=== PATIENT | male | born 1935 | race Caucasian/White ===

== ENCOUNTER 2023-10-07 22:07 | Emergency (ER) | payer MEDICARE, MEDICAID, SELFPAY ==
[2023-10-07 22:15] VITALS: BP 129/63
[2023-10-07 22:43] LABS: Hematocrit 32.2 % (39.0-52.0); Hemoglobin 11.5 g/dL (13.0-18.0); Mean Corp Hgb Conc. 35.7 g/dL (33.0-37.0); Mean Corpuscular Volume 103.5 fL (80.0-94.0); Mean Platelet Volume 11.7 fL (7.4-10.4); Platelet Count 158 10^3/uL (130-400); Red Blood Cell Count 3.11 10^6/uL (4.70-6.10); Red Cell Dist. Width 14.7 % (11.5-14.5); White Blood Cell Count 8.5 10^3/uL (4.8-10.8)
[2023-10-07 22:53] LABS: COVID-19 Antigen Negative (Negative)
[2023-10-07 22:55] LABS: ALT (SGPT) 31 U/L (0-50); AST (SGOT) 38 U/L (17-59); Albumin 4.7 g/dl (3.5-5.0); Alkaline Phosphatase 70 U/L (38-126); Blood Urea Nitrogen 20 mg/dl (9-20); Calcium 9.2 mg/dl (8.4-10.2); Carbon Dioxide 22 mmol/L (22-30); Chloride 105 mmol/L (98-107); Glucose 117 mg/dl (70-99); Sodium 138 mmol/L (135-145); Total Bilirubin 0.9 mg/dl (0.2-1.3); Total Protein 7.9 g/dl (6.3-8.2); eGFR > 60.00
[2023-10-07 23:00] VITALS: BP 119/88; BP 128/104
[2023-10-07 23:04] LABS: Platelets Checked Yes
[2023-10-07 23:05] LABS: Macrocytosis 1+; Normal RBC Morphology No
[2023-10-07 23:06] LABS: NT-proBNP 308 pg/ml; Troponin I < 0.012 ng/ml
[2023-10-07 23:07] LABS: Total Cells Counted 100
--- NOTE | 2023-10-07 23:23 | ED.GENMED ---
History of Present Illness
General
Chief Complaint: Breathing Problem
Time Seen by Provider: 10/07/23 22:54
History of Present Illness
History of Present Illness:
88-year-old male with history of CAD status post CABG December 2022, hypertension, diabetes presenting to the emergency department for shortness of breath. Patient is visiting from [place], staying with his daughter. Notes for the past week he
has had cough and shortness of breath, has had difficulty getting up mucus. Symptoms have been ongoing for the past week. Denies fever. Reports generalized fatigue. Denies chest pain, reports of burning in his chest. Denies any lower extremity
swelling. Patient takes metformin for his diabetes and aspirin, has not been taking his hypertensive medications. Denies any known sick contacts. Denies abdominal pain or GI complaints. Denies additional acute medical complaints
Phy Exam
Physical Exam
Physical Exam:
General: Well-appearing, no clinical signs of dehydration, nontoxic and in no acute distress
HEENT: protecting airway
Neck: appears supple
CV: Normal heart rate, regular rhythm, no evidence of cyanosis
Resp: No accessory muscle use, no increased work of breathing, lungs clear to auscultation bilaterally
Abd: Soft and non-distended, no tenderness to palpation, normal bowel sounds
Extremities: No deformities, no swelling, no erythema, pulses and sensation intact
Neuro: alert, no focal neurologic deficit
: deferred
Rectal: deferred
Psych: Normal affect
Skin: Intact
Scores
Heart Failure Risk
Heart Failure Risk Score: Yes
History of Stroke or TIA: No
History of intubation for respiratory distress: No
Heart rate on ED arrival >/= 110: No
SaO2 <90% on arrival on room air: No
HR >/=110 during 3min walk test (or too ill to perform test): No
ECG has acute ischemic changes: No
Urea >/=12mmol/L (BUN 33.6mg/dL): No
Serum CO2>/=35mmol/L: No
Troponin I or T elevated to KS Level (0.4mg/dL): No
NT-proBNP >/=5,000ng/L (5,000pg/ml): No
HF Risk Score: 0
Admission Status: LOW RISK 2.8% Consider discharge to home with f/u visit to PCP/Grinding Room Inspector
Course
Orders/Labs/Results
Orders:
Orders
10/07/23 22:24
Electrocardiogram (*1) Urgent
Reason for Study: Other
Other Reason for Exam: Respiratory Distress
Cardiac Monitoring- Treatment ONCE
EKG- Treatment ONCE
IV Insert/Care/Rem.- Treatment PRN
CR Chest - 2 Views Urgent
Comment:
Reason For Exam: respiratory distress
O2 Therapy [RESP] Urgent
Titrate/Wean O2 to maintain O2 sat greater than (%): 93
Special Instructions: TO MAINTAIN CONTINUOUS O2 SATS >/= 93%
Pulse Ox/cont/shift [RESP] Urgent
Quantity: 1
Special Instructions: continuous pulse ox
10/07/23 22:31
COVID-19 Antigen Urgent
Source: Nasal Swab
Complete Blood Count/With Diff Urgent
Comprehensive Metabolic Panel Urgent
Manual Differential Urgent
NT-proBNP Urgent
Troponin I Urgent
Abnormal Lab Results
10/07/23
22:31
RBC 3.11 L 10^6/uL
(4.70-6.10)
Hgb 11.5 L g/dL
(13.0-18.0)
Hct 32.2 L %
(39.0-52.0)
MCV 103.5 H fL
(80.0-94.0)
MCH 37.0 H pg
(27.0-31.0)
RDW 14.7 H %
(11.5-14.5)
MPV 11.7 H fL
(7.4-10.4)
Glucose 117 H mg/dl
(70-99)
10/07/23 22:31
10/07/23 22:31
Vital Signs
Initial and Last Documented VS:
Initial Vital Signs
Temp Pulse Resp BP Pulse Ox
99.9 F 73 26 129/63 94
10/07/23 22:15 10/07/23 22:15 10/07/23 22:15 10/07/23 22:15 10/07/23 22:15
Last Documented Vital Signs
Temp Pulse Resp BP Pulse Ox
99.9 F 70 22 137/58 94
10/07/23 22:15 10/08/23 00:15 10/08/23 00:15 10/08/23 00:00 10/08/23 00:30
MDM/Problems Addressed
MDM/Problems Addressed:
88-year-old male with history of CAD status post CABG, hypertension, diabetes presenting to the emergency department for cough and shortness of breath for 1 week. Vital signs on arrival significant for hypertension, however patient reports
noncompliance with hypertensive medications.
On exam, patient in no acute respiratory distress. Lung exam relatively unremarkable, no focal abnormal lung sounds. Patient with active dry cough. Possible viral component. Daughter references component of congestive heart failure, however
patient is not on any diuretic medications. No lower extremity edema or signs of volume overload on exam, lower suspicion. EKG obtained, lateral T wave inversion without prior for comparison. Patient denies any associated chest pain. Given
duration of symptoms, lower suspicion for acute coronary syndrome. Given risk factors, will obtain laboratory analysis. Will also obtain chest x-ray imaging.
23:30 - Labs unremarkable, normal BNP. Troponin also undetectable.
00:10 -chest x-ray without signs of pulmonary edema. No pleural effusions. No pulmonary infiltrates. COVID-negative. No leukocytosis or concern for pneumonia. At this time suspect likely viral quality to patient's symptoms. Patient otherwise
remains stable. Feel stable for discharge with close and for follow-up with his primary care doctor and video tape transferrer. Daughter is requesting antibiotics in the event that patient develops fever or worsening cough since he is traveling to
[place]. Will prescribe, however explained that patient should not start taking it unless cough becomes more productive, develops fever. Advised compliance with his blood pressure medications. Strict return precautions communicated to patient
and daughter at bedside who verbalized understanding
*EKG
Interpreted by ED Provider?: Yes
EKG Intrepretation Date: 10/07/23
EKG Intrepretation Time: 23:29
Interpretation: normal
Comparison EKG: no comparison EKG present
Heart Rate: 73
Rate: normal
Rhythm: sinus
Wheelwright: normal axis
Interval: normal interval
QRS Pattern: normal QRS
Ischemia: T-wave inversion (laterally)
*Critical Care Note
Total Time (30-74mins, 75-104mins- exclusive of procedures): Not Applicable
ED Attending Note
-
Portions of this chart may have been created with voice recognition software.� Occasional wrong word or��sound alike� substitutions may have occurred due to the inherent limitations of voice recognition software.
Discharge Plan
Departure
Patient Disposition: Home (Routine Discharge)
Date of Disposition: 10/08/23
Time of Disposition: 00:19
Patient with high blood pressure during this ER visit?: No
Condition: Good
Discharge Problem:
Cough, Acute viral syndrome
Instructions: Upper Respiratory Infection - Adult
Prescriptions:
New
doxycycline hyclate 100 mg capsule
100 mg PO BID 7 Days Qty: 14 0RF
benzonatate 100 mg capsule
100 mg PO BID PRN (Reason: Cough) Qty: 10 0RF
Referrals:
NONE,* [Family Provider] -
Activity Restrictions/Additional Instructions:
You were seen in the emergency department for cough and shortness of breath
You were found to have a normal chest x-ray and laboratory analysis
Please follow-up closely with your primary care physician.
Return to the emergency department for any worsening of your symptoms, or any development of chest pain, difficulty breathing, abdominal pain with persistent vomiting and inability to tolerate food or liquid by mouth (concern for dehydration),
weakness, headache or confusion, fever greater than 100.4, or any additional symptoms that are concerning to you.
Thank you for choosing [facility].
Interventions
Interventions:
*Risk Screen - Suicide Last Done: 10/07/23 22:15
*General Assessment Last Done: 10/07/23 22:15
*Neglect/Abuse Screening Last Done: 10/07/23 22:15
ED- Fall Risk Assessment Last Done: 10/07/23 22:15
*ED COVID-19 Vaccine History Last Done: 10/07/23 22:15
*Nursing Disposition Last Done: 10/08/23 01:05
ED- Cardiac Assessment Last Done: 10/07/23 23:04
ED- Pulmonary Assessment Last Done: 10/07/23 23:04
Discharge Date and Time
Discharge Date/Time: 10/08/23 01:05
Print Language: YI
[2023-10-08] VITALS: BP 137/58
[2023-10-08 19:28] LABS: Absolute Neutrophils -Man Diff 4.3 10^3/uL (1.4-6.5)
[2023-10-08 19:32] LABS: Band Neutrophils 6 % (0-3); Lymphocytes 26 % (20-51); Segmented Neutrophils 45 % (42-75)
[2023-10-08 19:33] LABS: Blasts 3 % (-); Metamyelocytes 1 % (-); Monocytes 18 % (2-9); Myelocytes 1 % (-)
--- NOTE | 2023-10-09 08:55 | ED.ATTNOTE ---
ED Attending Note
ED Attending Note
ED Attending Note:
Lab informed of this that the CBC from the other night showed 3% blasts. I informed his daughter by phone, Ekaterina, . I encouraged her to follow-up with a radiology teacher and she can return here with him if he is worsening. They live in
[place] but will still be here for the short-term.
-
Portions of this chart may have been created with voice recognition software.� Occasional wrong word or��sound alike� substitutions may have occurred due to the inherent limitations of voice recognition software.
== END 2023-10-08 01:05 | disposition home or self-care (01) ==
LOC: EMR 22:07
PROVIDERS: Emergency Medicine; EMERGENCY PHYSICIAN Student in an Organized Health Care Education/Training Program
DX: B34.9 Viral infection, unspecified (principal); R05.9 Cough, unspecified; I10 Essential (primary) hypertension; E11.9 Type 2 diabetes mellitus without complications; I25.10 Atherosclerotic heart disease of native coronary artery without angina pectoris; Z91.148 Patient's other noncompliance with medication regimen for other reason; Z95.1 Presence of aortocoronary bypass graft
CPT/HCPCS: 99283; 71046; 80053; 83880; 84484; 85025; 87811; 93005

== ENCOUNTER 2024-11-21 19:14 | Inpatient (IN) | payer MEDICARE, OTHER, SELFPAY ==
[2024-11-21 13:22] VITALS: BP 152/67
--- NOTE | 2024-11-21 14:38 | ED.GENMED ---
History of Present Illness
General
Chief Complaint: Cough
Source: patient and family
Exam Limitations: none
Time Seen by Provider: 11/21/24 14:13
Nursing documentation reviewed up to this point in time: agreed with
History of Present Illness
History of Present Illness:
89-year-old male with a past medical history of hypertension, hyperlipidemia, CAD status post CABG, CHF who presents to the emergency room for evaluation of cough. Patient is visiting family from [place], here with his son today. He reports that
over the past week he has had persistent nonproductive cough. He reports mild associated shortness of breath. He has had some mild rhinorrhea. He denies any chest pain. He has not noticed any swelling in the legs. Subjective but no objective
fever. He denies any other acute complaints. He says he had similar symptoms with pneumonia in the past.
Review of Systems
Review of Systems
All Other Systems: ROS reviewed and negative except as documented in HPI and ROS
Constitutional: Reports fever and fatigue
EENT: Reports runny nose; Denies sore throat
Respiratory: Reports cough and trouble breathing
Cardiac: Denies chest pain
ABD/GI: Denies abdominal pain, vomiting or diarrhea
Musculoskeletal: Denies edema, neck pain or back pain
Neurological: Denies headache
Phy Exam
Physical Exam
Physical Exam:
General: Awake, alert, oriented x3; no acute distress
Head: Normocephalic, atraumatic
Eyes: Conjunctiva normal
Throat: Airway intact, handling secretions
Neck: Trachea midline, no JVD
Lungs: Patient has faint rales at the right lung base, frequent cough; no tachypnea or hypoxia or other signs of respiratory distress
Heart: Regular rate and rhythm, no murmurs, gallops, or rubs appreciated, well-healed sternotomy scar noted
Neuro: Grossly intact
Skin: No rash noted
Extremities: No edema in extremities, warm and well-perfused
Scores
Heart Failure Risk
Heart Failure Risk Score: Not Applicable
Heart Score for Chest Pain Patients
STEMI patient?: Not applicable
Withdrawal Assessment of Alcohol
Withdrawal Assessment Completed?: Not applicable
Course
Orders/Labs/Results
Orders:
Orders
11/21/24 13:26
CR Chest - 2 Views Urgent
Comment:
Reason For Exam: cough
11/21/24 14:39
Electrocardiogram (*1) Urgent
Reason for Study: Shortness of Breath
EKG- Treatment ONCE
11/21/24 14:48
COVID-19 Antigen Urgent
Source: Nasal Swab
Complete Blood Count/With Diff Urgent
Comprehensive Metabolic Panel Urgent
NT-proBNP Urgent
Influenza A+B Rapid Molecular Urgent
ROSY Source: Nasal Swab
Specimen Description:
11/21/24 16:18
Amoxicillin 875 mg/Clav 125 mg [Augmentin 875 mg/125 mg] 1 tablet PO NOW STA
Azithromycin [Zithromax] 500 mg PO NOW STA
Abnormal Lab Results
11/21/24
14:48
WBC 11.3 H 10^3/uL
(4.8-10.8)
RBC 2.94 L 10^6/uL
(4.70-6.10)
Hgb 10.8 L g/dL
(13.0-18.0)
Hct 32.2 L %
(39.0-52.0)
MCV 109.5 H fL
(80.0-94.0)
MCH 36.7 H pg
(27.0-31.0)
RDW 14.6 H %
(11.5-14.5)
MPV 12.0 H fL
(7.4-10.4)
Glucose 117 H mg/dl
(70-99)
11/21/24 14:48
11/21/24 14:48
Vital Signs
Initial and Last Documented VS:
Initial Vital Signs
Temp Pulse Resp BP Pulse Ox
36.9 C 69 17 152/67 95
11/21/24 13:22 11/21/24 13:22 11/21/24 13:22 11/21/24 13:22 11/21/24 13:22
Last Documented Vital Signs
Temp Pulse Resp BP Pulse Ox
36.9 C 69 18 155/74 91
11/21/24 13:22 11/21/24 16:30 11/21/24 16:30 11/21/24 16:00 11/21/24 16:15
MDM/Problems Addressed
Differential Diagnosis Includes:
Pneumonia, bronchitis, viral syndrome, CHF less likely clinically
MDM/Problems Addressed:
89-year-old male presents for evaluation of cough, shortness of breath, subjective fever over the past week. Vitals and exam as above. Plan to check labs including a CBC and a CMP, proBNP. Check viral swabs. Check chest x-ray and EKG. Reassess
after the above.
Labs reviewed: CBC shows mild leukocytosis, stable anemia. CMP no clinically significant abnormalities. COVID and flu swabs negative. Chest x-ray shows cardiomegaly in the setting of known CHF. He has ground glass opacities in lower lobes
bilaterally�overall seeking clinical picture into consideration suspect this represents pneumonia. Lower suspicion that this is pulmonary edema/CHF�although his proBNP was slightly elevated he is having acute cough with subjective fever with no
edema, no JVD or other signs of congestive heart failure. Will plan to treat with antibiotics. On clinical reassessment his respiratory and pulse ox are acceptable although most recent pulse ox low normal 91%. Spoke with patient and son at length
about treatment plan and disposition�patient feels too weak to go home this evening and is requesting to stay in the hospital until he feels a bit better. Son says he feels uncomfortable with patient's current functional status. Discussed case
with hospitalist for admission.
Chronic conditions affecting care:
CHF
*Radiology
Radiology exam reviewed: preliminary read by ED provider
*Pulse Oximetry
SaO2: 95
Oxygen Mode of Delivery: Room air
Patient hypoxic: no (95%)
*Critical Care Note
Total Time (30-74mins, 75-104mins- exclusive of procedures): Not Applicable
Data Reviewed
Review of Other/Old Records Reveals: Labs and Records
Source: patient and family
Patient Management
Discussion with other providers: Hospitalist (Discussed with hospitalist)
Escalation/DeEscalation of care consider admission/obs:
Admission indicated
ED Attending Note
-
Portions of this chart may have been created with voice recognition software.� Occasional wrong word or��sound alike� substitutions may have occurred due to the inherent limitations of voice recognition software.
Discharge Plan
Departure
Patient Disposition: Admit
Date of Disposition: 11/21/24
Time of Disposition: 16:26
Admit to doctor: Perez
Presentation/result/management discussed w/ accepting MD/DO: Hospitalist
Discharge Problem:
Pneumonia
Instructions: Pneumonia, Adult (DC)
Prescriptions:
No Action
doxycycline hyclate 100 mg capsule
100 mg PO BID 7 Days Qty: 14 0RF
benzonatate 100 mg capsule
100 mg PO BID PRN (Reason: Cough) Qty: 10 0RF
Referrals:
UNKNOWN - PT DOES,NOT KNOW [Family Provider]
Interventions
Interventions:
*Risk Screen - Suicide Last Done: 11/21/24 13:25
*General Assessment Last Done: 11/21/24 13:25
*Neglect/Abuse Screening Last Done: 11/21/24 13:25
*ED COVID-19 Vaccine History Last Done: 11/21/24 13:25
Discharge Date and Time
Print Language: GREEK
[2024-11-21 14:56] VITALS: BP 155/70
[2024-11-21 14:59] VITALS: BMI 39.6
[2024-11-21 15:00] VITALS: BP 158/69
[2024-11-21 15:17] LABS: Hematocrit 32.2 % (39.0-52.0); Hemoglobin 10.8 g/dL (13.0-18.0); Mean Corp Hgb Conc. 33.5 g/dL (33.0-37.0); Mean Corpuscular Volume 109.5 fL (80.0-94.0); Platelet Count 133 10^3/uL (130-400); Red Cell Dist. Width 14.6 % (11.5-14.5)
[2024-11-21 15:28] LABS: COVID-19 Antigen Negative (Negative)
[2024-11-21 15:31] LABS: ALT (SGPT) 17 U/L (0-50); AST (SGOT) 21 U/L (17-59); Albumin 4.2 g/dl (3.5-5.0); Alkaline Phosphatase 66 U/L (38-126); Blood Urea Nitrogen 12 mg/dl (9-20); Calcium 8.5 mg/dl (8.4-10.2); Carbon Dioxide 26 mmol/L (22-30); Chloride 105 mmol/L (98-107); Estimated Creatinine Clearance 60 ml/min; Glucose 117 mg/dl (70-99); Potassium 4.2 mmol/L (3.5-5.1); Sodium 138 mmol/L (135-145); Total Protein 7.8 g/dl (6.3-8.2); eGFR > 60.00
[2024-11-21 16:00] VITALS: BP 155/74
[2024-11-21] MEDS: AUGMENTIN 875 MG/125 MG 1 TABLET PO (16:38)
[2024-11-21] MEDS: ZITHROMAX 500 MG PO (16:38)
[2024-11-21 17:20] LABS: Absolute Neutrophils -Man Diff 5.4 10^3/uL (1.4-6.5); Anisocytosis 1+; Macrocytosis 1+; Normal RBC Morphology No; Platelets Checked Yes; Total Cells Counted 100
--- NOTE | 2024-11-21 17:28 | PHANOTE ---
med rec tech: pt and family member do not speak Angolan. Spoke to daughter on pt's phone and she will look for bottles and bring them to the hospital.
--- NOTE | 2024-11-21 17:30 | HPS.HSE ---
Family Physician
-
Family Physician: NOT KNOW UNKNOWN - PT DOES
Chief Complaint
-
Shortness of breath, PETTY, wheezing, nonproductive cough
History of Present Illness
89-year-old Latvian-speaking male whose daughter states he has had shortness of breath for the past week with dyspnea on exertion. He has had a cough however he swallows the mucus and is not able to expectorate it. He also reported chills a week
ago with temperature of only 99F. He denies chest pain, palpitations, fever, chills, headache, sore throat, abdominal pain, nausea, vomiting, diarrhea, urinary symptoms, sick contacts.
Past medical history CAD/CABG x 3 vessel December 2022 [facility], chronic CHF, LBBB, HTN, HLD, DM 2, dementia with short-term memory impairment per daughter via phone needs assistance with all ADLs goes to adult senior
care 3 times a week however only went on Friday due to shortness of breath. Chronic macrocytic anemia, class III obesity
Medical History
Past Medical History
Past Medical History: Reports Other
Additional Past Medical History:
CAD/CABG x 3 vessel December 2022 [facility]
CHF
LBBB
HTN
HLD
DM 2
chronic macrocytic anemia
Class III obesity
Past Surgical History: Reports Other
Additional Past Surgical History:
CAD/CABG x 3 vessel December 2022 [facility]
ORIF left shoulder
Social History
Tobacco: Former Smoker (Quit age 31)
Alcohol: None
Drug: None
Personal: Single
Living: With Family (Lives in same home as family but has separate area)
Employment: Retired
Family History
Family History: Not pertinent
Allergies / Home Medications
Allergies reflects when Allergies were last updated in [employer].
Home Medications with original date entered in [employer]
Allergy/Medication List:
Allergies
Allergy/AdvReac Type Severity Reaction Status Date / Time
No Known Allergies Allergy Verified 10/07/23 22:15
Home Medications
clotrimazole-betamethasone 1 %-0.05 % topical cream 1 applic topical BID 11/21/24
linaclotide 145 mcg capsule (Linzess) 145 mcg PO DAILY 11/21/24
omeprazole 20 mg capsule,delayed release 20 mg PO BID 11/21/24
Attempted to clarify patient meds with daughter via phone who does not have the list. I called [facility] in [facility] which was closed and does not have any 24-hour [place] in that state according to online site. Pharmacy staff will
attempt to obtain patient's home med list in the a.m. from [facility]
Review of Systems
-
History Source: Patient and Family (Daughter via phone who speaks Latvian son at bedside limited Kyrgyz)
A 12 point ROS was completed and negative except as noted: Yes
Constitutional: Denies Fever or Chills
EENT: Denies Runny Nose
Respiratory: Reports Cough (Nonproductive), Trouble Breathing and Other (PETTY, diffuse wheezing throughout both lung mendez)
Cardiac: Denies Chest Pain, Diaphoresis, Palpitations or Syncope
Abdomen/GI: Reports Other (Ventral hernia present with setting up soft nontender); Denies Abdominal Pain, Nausea, Vomiting, Diarrhea, Constipated, Bloody Stools or Black Stools
: Denies Dysuria, Frequency, Flank Pain, Incontinence or Difficulty Voiding
Musculoskeletal: Denies Joint Pain or Edema
Skin: Denies Itching or Rash
Neurological: Denies Dizzy or Headache
Endocrine: Reports No Symptoms
Hematologic/Lymphatic: Reports No Symptoms
Psych: Reports Calm
Physical Exam
Vital Signs
Vital Signs
Temp Pulse Resp BP Pulse Ox
98.5 F 69 18 155/74 91
11/21/24 13:22 11/21/24 16:30 11/21/24 16:30 11/21/24 16:00 11/21/24 16:15
Physical Exam
General: Conversant (But short of breath with minimal activity as in sitting up) and Morbidly Obese; No Pain, Fever or Chills
HEENT: NormoCephalic, Anicteric, Moist mucous membranes, PERRLA, [place] Conjunctivae and No Ptosis
Respiratory: Wheezes (Expiratory bilaterally throughout both lung mendez); No Rales or Rhonchi
Cardiac: S1/S2 and Regular Rhythm; No Murmur, Rub, Gallop or Peripheral Edema
Breast: Deferred by me
GI: Soft, Non Tender, Non Distended, Normal Bowel Sounds, No Hepatosplenomegaly and Other (Soft longitudinal ventral hernia with sitting up nontender)
Rectal: Deferred by Provider
Genito-urinary: Deferred by me
Musculoskeletal: No Clubbing, No Cyanosis and No Edema
Skin: Warm and Dry; No Rash or Jaundice
Neuro: Awake, Alert, Oriented (In Latvian to name, daughter, review of systems however daughter states does have history of memory impairment admits to short-term memory dementia needs assist with all ADLs goes to adult daycare 3 times a week), No
Motor Deficits, Cranial Nerves Intact and Other (Chronic OHOGAMIUT); No Slurred Speech, Facial Droop, Tremors or Sedated
Psych: Calm
Laboratory Results
-
11/21/24 14:48
11/21/24 14:48
Laboratory Results
Total Bilirubin 1.0 mg/dl (0.2-1.3) 11/21/24 14:48
AST 21 U/L (17-59) 11/21/24 14:48
ALT 17 U/L (0-50) 11/21/24 14:48
Alkaline Phosphatase 66 U/L (38-126) 11/21/24 14:48
Data Reviewed
-
Lab Data: Labs Reviewed by me
Impression/Plan
-
Impression/plan:
Admit to telemetry
#Acute hypoxic respiratory insufficiency 2/2 likely Acute on chronic CHF versus less likely bilateral lower lobe pneumonia
Patient attends adult alf 3 days a week
WBC 11.3 no shift, COVID/influenza negative
BNP 1929
91% RA, supplemental O2
I/O, daily weights
Afebrile 98.5, HR 69, 155/74
-Procalcitonin negative we will hold further antibiotics as suspect shortness of breath is due to CHF
- Check 2D echo
- Consult CBC cardiology
- IV Lasix 40 mg now on daily
CXR:
1. Moderate cardiomegaly with evidence for previous CABG s
Diagnostic possibilities are (1) mild bilateral lower lobe pneumonia,
(2) mild subsegmental atelectasis and scarring, or (3) mild alveolar pulmonary edema.
3. Mildly decreased bilateral lung volumes
EKG: NSR 64 bpm, incomplete LBBB QTc 416 MS. No change from September 2023
#History of LBBB
#CAD/CABG x 3 vessel December 2022 [facility]
#Dementia with short-term memory impairment per daughter via phone (Latvian speaking male)
needs assistance with all ADLs goes to adult alf 3 times a week however only went on Friday due to shortness of breath
- Might not always know president, day of the week, needs help with cooking bathing dressing
#HTN
BP 155/74
#HLD
Check lipid profile
#DM 2
Accu-Cheks with SSI, check HgbA1c
#GERD/IBS
Continue omeprazole, continue Linzess
#Chronic anemia�macrocytic
Hgb 10.8 appears near baseline was 11.5 09/2023
#Chronic ventral hernia
#Class III obesity�BMI 39.6
Affects all aspects of care
DVT prophylaxis
Subcu heparin
Full code per daughter via phone
[2024-11-21 19:08] LABS: Procalcitonin 0.10 ng/ml (0.0-0.25)
[2024-11-21 20:00] VITALS: BP 173/71; BMI 35.1
--- NOTE | 2024-11-21 20:15 | PTCARENOTE ---
Pt rec'd from ED alert & oriented (confirmed by daughter as pt speaks Jamaican and very little Armenian). Able to ambulate from hallway to bed w/steady gait. Pt oriented to room and plan of care reviewed w/pt via translation by daughter. Instructed on
call alexander use and use of urinal in order to measure urine. Pt verbalizes understanding.
[2024-11-21 20:25] LABS: Glucose - Point of Care 104 mg/dl (70-99)
[2024-11-21] MEDS: LASIX 40 MG IV (20:39)
--- NOTE | 2024-11-21 22:06 | W.PN.UPDATE ---
Update Note
Progress Note Update
This is an addendum to H&P written by Michell Lopez on 11/21/2024. �Patient seen and examined independently with REMEDIATION CONSULTANT.
89-year-old male past medical history of CAD status post CABG, CHF, left bundle branch block, hypertension, hyperlipidemia, diabetes, chronic macrocytic anemia, obesity, presenting with 1 week of shortness of breath with exertion, nonproductive
cough and wheezing.
Vital signs unremarkable.
Labs show leukocytosis. �Cardiac BNP of 1900. �COVID and�flu negative. Procal negative.�
Patient with dyspnea likely secondary to acute CHF exacerbation versus less likely pneumonia.� Patient given amoxicillin and azithromycin in ER.� Stop further Abx.� �40 IV Lasix. �Check echocardiogram. Cardiology consulted.�
[2024-11-21 23:00] VITALS: BP 116/48
[2024-11-22] VITALS (7 sets, daily range): BP systolic 117–156; BP diastolic 48–74; PULSE 72; O2SAT 94; BMI 35.2
[2024-11-22 07:43] LABS: Glucose - Point of Care 144 mg/dl (70-99)
--- NOTE | 2024-11-22 07:59 | CON.CAR ---
Addendum entered and electronically signed by Jerzy Arzola MD 11/22/24 09:59:
I saw and examined the patient.
The CUSTOMS PORT DIRECTOR's note was reviewed and I agree with the note.
81-year-old Turkish-speaking male history of coronary artery bypass grafting 2022 in [place], hypertension hypercholesterolemia diabetes left bundle branch block and dementia. Daughter is with him at the bedside and helps provide additional
history as well as interprets for patient. Patient said shortness of breath and cough difficulty raising sputum. No fever. No complaints of chest pain no orthopnea or lower extremity edema she helps him with his medications. Reportedly
compliant. They state he has had no hospitalizations since his coronary artery bypass grafting in 2022 and denies history of heart failure. On presentation patient shortness of breath with elevated Probalan BNP. In addition chest x-ray with mild
ground glass opacity in the lower lobes possible pneumonia or pulmonary edema. Appears patient has a component of acute CHF. LV function unknown. Will proceed as follows
- Diuresis with IV Lasix
- Monitor weights labs and renal function-
-will defer to hospitalist regarding additional optimization of pulmonary issues including treatment of wheezing possible use of inhalers and consideration for antibiotics.
-Echocardiogram
-Obtain old records
-Additional recommendations based on echo results
-
Original Note:
Consultation
Consultation Request
Date/Time Consultation Requested: 11/21/2024 22:30
Date/Time Consultation Performed: 11/22/2024 08:00
Requesting Provider: JORGE Kauffman
Performing Provider: JORGE Nicole for Dr. Arzola
Reason for Consultation: New heart failure
Medical History
-
Chief Complaint: Shortness of breath
History of Present Illness:
Cameron Guerra is an 89-year-old male with CAD s/p CABG (2022, [facility] in [place]), hypertension, hypercholesterolemia, type 2 diabetes mellitus, LBBB, and dementia presented to the emergency department the
chief complaint of shortness of breath. He endorses dyspnea on exertion and moist productive cough. He denies chest pain, palpitations, and dizziness. Per his daughter, his shortness of breath has been ongoing for 1 week. His normal schedule
includes going to [facility] 3 times a week. He requires assistance with all ADLs. He was admitted with acute heart failure exacerbation. Unfortunately, his daughter does not have a home medication list and his pharmacy is closed.
Past Medical History
Past Medical History: CAD (CABG [2022]), HTN, Hypercholesterolemia, NIDDM and Other (LBBB, dementia)
Past Surgical History: Cardiac (CABG [2022]) and Orthopedic
Social History
Tobacco: Former Smoker
Drug: None
Living: With Family
Employment: Retired
Family History
Family History: Reviewed & Not Pertinent
Allergies / Home Medications
Allergy/AdvReac Type Severity Reaction Status Date / Time
No Known Allergies Allergy Verified 10/07/23 22:15
�Medication �Instructions �Recorded �Confirmed �Type
clotrimazole-betamethasone 1 1 applic topical BID Skin Issues 11/21/24 History
%-0.05 % topical cream
linaclotide 145 mcg capsule 145 mcg PO DAILY Gastrointestinal 11/21/24 History
(Linzess) Agent
omeprazole 20 mg capsule,delayed 20 mg PO BID GERD 11/21/24 History
release
Review of Systems
-
History Source: Patient
All other systems: Negative unless noted
Constitutional: No Symptoms
EENT: No Symptoms
Respiratory: Cough and Trouble Breathing
Cardiac: No Symptoms
Abdomen/GI: No Symptoms
: No Symptoms
Musculoskeletal: No Symptoms
Skin: No Symptoms
Hematologic/Lymphatic: No Symptoms
Physical Exam
Vital Signs
Temp Pulse Resp BP Pulse Ox
100.2 F 71 22 118/48 95
11/22/24 03:00 11/22/24 03:00 11/22/24 03:00 11/22/24 03:00 11/22/24 03:00
Lab Results
Dud-H-Oxbwyhcaapb Pept 1930 pg/ml 11/21/24 14:48
Physical Exam
General: Well Developed, Well Nourished and No Apparent Distress
HEENT: Normocephalic and Anicteric
Respiratory: Wheezes
Cardiac: S1/S2 and Regular Rhythm
Breast: Deferred by me
GI: Soft, Non Tender, Non Distended and Normal Bowel Sounds
Rectal: Deferred by Provider
Musculoskeletal: No Clubbing and No Cyanosis
Skin: Warm and Dry
Neuro: Awake and Alert
Hematologic/Lymphatic: No Lymphadenopathy
Psych: Calm
Impression / Plan
-
I/P: 89M Turkish speaking with CAD s/p CABG (2022, [facility] in [place]), hypertension, hypercholesterolemia, type 2 diabetes mellitus, LBBB, and dementia presented to the emergency department the chief complaint of
shortness of breath. He was admitted with an acute heart failure exacerbation.
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
Heart failure, type unknown, NEW, acute on chronic - severe, requiring hospitalization
- CXR with GGO and proBNP 1929
- No orthopnea but expiratory wheezing
- Diuresis with furosemide 40 mg IV twice daily, this requires intensive monitoring
- Case management to pinon SGLT2
- Trend daily weight, I/O, and BMP with diuresis
- Heart failure education with daughter, patient has underlying dementia and he lives at home
- Echocardiogram today
CAD s/p CABG 2022, stable without chest pain
- Await home medication list, start ASA 81 mg daily
Hypertension
- BP stable currently, normally on amlodipine 10 mg daily
PSVT
-Brief run on telemetry, await medication list, would not start BB now with wheeze
Hypercholesterolemia, he is supposed to on atorvastatin 40 mg, per pharmacy has never filled this prescription
Type 2 diabetes mellitus, with hyperglycemia, care per primary
Former smoker, continue cessation recommended
Dementia, chronic
IVCD, chronicity unknown, likely chronic
Data Reviewed
-
Radiology: Report Reviewed by me (CXR: Moderate cardiomegaly with evidence for previous CABG surgery. Mild ground-glass opacity in the lower lobes of both lungs. )
Labs: Labs Reviewed by me
Old Records: Reviewed
[2024-11-22 08:19] LABS: Hematocrit 31.8 % (39.0-52.0); Hemoglobin 10.6 g/dL (13.0-18.0); Mean Corp Hgb Conc. 33.3 g/dL (33.0-37.0); Mean Corpuscular Volume 109.7 fL (80.0-94.0); Platelet Count 124 10^3/uL (130-400); Red Cell Dist. Width 14.6 % (11.5-14.5)
[2024-11-22 08:46] LABS: ALT (SGPT) 15 U/L (0-50); AST (SGOT) 20 U/L (17-59); Albumin 4.1 g/dl (3.5-5.0); Alkaline Phosphatase 60 U/L (38-126); Blood Urea Nitrogen 13 mg/dl (9-20); Calcium 8.5 mg/dl (8.4-10.2); Carbon Dioxide 27 mmol/L (22-30); Chloride 103 mmol/L (98-107); Estimated Creatinine Clearance 62 ml/min; Glucose 138 mg/dl (70-99); Potassium 3.9 mmol/L (3.5-5.1); Sodium 138 mmol/L (135-145); Total Protein 7.4 g/dl (6.3-8.2); eGFR > 60.00
[2024-11-22 08:58] LABS: Absolute Neutrophils -Man Diff 5.1 10^3/uL (1.4-6.5); Anisocytosis 1+; Hypochromasia 1+; Macrocytosis 1+; Normal RBC Morphology No; Platelets Checked Yes
[2024-11-22 08:59] LABS: Total Cells Counted 100
[2024-11-22] MEDS: ASPIR LOW (ENTERIC COATED) 81 MG PO (09:26)
--- NOTE | 2024-11-22 09:28 | W.PN.HOSP.TC ---
Today's Communication/Plan
-
see bold
Assessment / Plan
Assessment / Plan
HPI: 89-year-old male past medical history of CAD status post CABG, CHF, left bundle branch block, hypertension, hyperlipidemia, diabetes, chronic macrocytic anemia, obesity, presenting with 1 week of shortness of breath with exertion, nonproductive
cough and wheezing.
#Acute heart failure with preserved ejection fraction
Appreciate cardiology input, continue Lasix 40 mg IV twice daily
Trend creatinine, trend daily weights
#Probable pneumonia
Patient with a mild leukocytosis, and low-grade fever upon admission
Influenza negative, COVID-negative
Check urine Legionella and strep antigens
Continue IV Rocephin, doxycycline day 2
Add budesonide nebs twice daily, DuoNebs as needed
#Gastroesophageal reflux disease
Continue PPI twice daily once med rec is confirmed
#Essential hypertension
Monitor blood pressure
#Glucose intolerance
Hemoglobin A1c 6.4
Sliding scale insulin, carb controlled diet
#Obesity due to excess calories
Affects all aspects of care
DVT prophylaxis�subcu Lovenox
Full code
Total time spent to see the patient on the floor, examine the patient, review data and lab results, discuss treatment plan with patient, nursing staff around 35 minutes.
Physical Exam
General: Obese, no acute distress
HEENT: Normocephalic, Atraumatic, EOMI, MMM
Respiratory: Coarse breath sounds with faint wheezing
Cardiac: Normal S1/S2, Regular Rate and Rhythm
GI: Soft, Nontender, Nondistended, Normal Bowel Sounds
Extremities: No Clubbing, Cyanosis
Neuro: Nonfocal/Grossly Intact
Psych: Calm, Cooperative
Anticipated Discharge: 24 - 48 hours
Subjective/Interval History
-
Date of Service: November 22, 2024
Patient continues to cough. Denies shortness of breath. No fever, no vomiting.
Objective Data
-
Labs:
Laboratory Results
11/22/24
07:58
WBC 10.6
Hgb 10.6 L
Hct 31.8 L
Plt Count 124 L
Sodium 138
Potassium 3.9
Chloride 103
Carbon Dioxide 27
BUN 13
Creatinine 0.9
Glucose 138 H
Calcium 8.5
Total Bilirubin 1.0
AST 20
ALT 15
Alkaline Phosphatase 60
Vital Signs:
Vital Signs
Temp Pulse Resp BP Pulse Ox
98.2 F 63 18 156/72 97
11/22/24 07:30 11/22/24 07:30 11/22/24 07:30 11/22/24 07:30 11/22/24 07:30
I&O
11/21/24 11/22/24 11/23/24
06:59 06:59 06:59
Intake Total 480 / 480
Output Total 850 / 850
Balance -370 / -370
[2024-11-22] MEDS: LASIX 40 MG IV ×2 (09:34→15:27)
[2024-11-22] MEDS: VIBRAMYCIN 100 MG PO ×2 (11:10→19:36)
[2024-11-22] MEDS: ROCEPHIN 1000 MG IV (11:10)
[2024-11-22] MEDS: STERILE WATER FOR INJECTION 10 ML IV (11:10)
--- NOTE | 2024-11-22 11:28 | CM ---
Initial assessment completed. Patient is a 89-year-old Singaporean-speaking male whose daughter states he has had shortness of breath for the past week with dyspnea on exertion. He has had a cough however he swallows the mucus and is not able to
expectorate it.
CM spoke w/ patient's daughter, Ekaterina. Patient resides w/ Ekaterina in a 2STH, 1 step to enter from the outside. Patient moved from [place] in May or July of this year. Patient is independent w/ the use of a cane, is assisted w/ ADLs by Ekaterina and
aide. Patient has an adjustable bed, grab bar and shower chair. Denies SNF/HC hx. Per Ekaterina, patient has an aide daily from 10 am to midnight or 1 am but time varies.
Address, point of contact and insurance verified
PCP: Patient does not have an established PCP at this time. Per Ekaterina, the PCP recommended does not have any open appts at this time but is located in [facility].
Pharmacy: [facility]. Per pharmacy, patient is not an established customer. Ekaterina stated she has to locate a pharmacy and establish patient
Ekaterina mentioned that patient has [facility] and it should be primary. Patient has Medicare as primary and Medicaid of [place] as secondary listed. Ekaterina stated she will provide [place] card when she gets to the hospital around 2 pm.
CM consulted to kathrin Branch and [place]. Ekaterina stated patient's Medicaid covers his prescriptions but requested paper scripts for medications at discharge to take to the pharmacy. Updated ordering physician.
PT assessment ordered, will watch for any recommendations
Plan: CM will cont to follow for d/c planning
[2024-11-22 11:46] LABS: Glycohemoglobin (HgbA1c) 6.4 % (4.0-5.6)
[2024-11-22 12:38] LABS: Glucose - Point of Care 125 mg/dl (70-99)
[2024-11-22] MEDS: PULMICORT INH (15:30)
--- NOTE | 2024-11-22 16:19 | PHANOTE ---
med rec note- called patient pharmacy [facility] in [place] at [phone] no current fills for medication, patient had Norvasc 10mg daily called in month of 06/2023 but never picked up, Lipitor never picked up from 2022 no current pharmacy fills except
omeprazole
[2024-11-22 16:53] LABS: Glucose - Point of Care 137 mg/dl (70-99)
[2024-11-22] MEDS: LOVENOX 40 MG SC (17:28)
[2024-11-22] MEDS: LIPITOR 40 MG PO (17:28)
[2024-11-22] MEDS: PULMICORT 0.5 MG INH (19:19)
[2024-11-22 21:22] LABS: Glucose - Point of Care 115 mg/dl (70-99)
[2024-11-23 03:00] VITALS: BP 145/69
[2024-11-23] MEDS: TYLENOL 650 MG PO (05:35)
[2024-11-23 06:00] VITALS: BMI 34.1
[2024-11-23] MEDS: DUONEB 3 ML INH (07:23)
[2024-11-23] MEDS: PULMICORT 0.5 MG INH (07:23)
[2024-11-23 07:30] VITALS: BP 102/51
[2024-11-23 08:10] LABS: Glucose - Point of Care 138 mg/dl (70-99)
--- NOTE | 2024-11-23 08:24 | W.PN.CD ---
Today's Communication / Plan
-
- Patient now appears to be compensated on examination.
- Will transition to Lasix 40 mg PO daily, which should be on regimen.
- Will start Farxiga.
- Will start Toprol-XL 25 mg daily.
Impression / Plan
-
I/P: 89M St [place] speaking with CAD s/p CABG (2022, [facility] [place] in [place]), hypertension, hypercholesterolemia, type 2 diabetes mellitus, LBBB, and dementia presented to the emergency department the chief complaint of
shortness of breath.
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
Acute HFpEF:
- EF 57% on echocardiogram.
- CXR with GGO/PNA and proBNP 1929
- Patient now appears to be compensated on examination.
- Will transition to Lasix 40 mg PO daily, which should be on regimen.
- Will start Farxiga.
- Trend daily weight, I/O, and BMP with diuresis.
- Heart failure education with daughter, patient has underlying dementia and he lives at home.
CAD s/p CABG 2022:
- Currently stable; denies any anginal symptoms.
- Continue aspirin 81 mg daily and atorvastatin 40 mg daily
- Check lipid panel in AM.
- Adding beta-mike as below.
PVCs/NSVT:
- Conservative management.
- Will start Toprol-XL 25 mg daily.
Hypertension
- Fairly controlled.
PSVT
- Started Toprol-XL as above.
Hypercholesterolemia:
- Continue atorvastatin 40 mg.
Type 2 diabetes mellitus, with hyperglycemia, care per primary
Former smoker, continue cessation recommended
Dementia, chronic
Physical Exam
Vital Signs/Labs
Vital Signs
Temp Pulse Resp BP Pulse Ox
98.4 F 66 18 145/69 96
11/23/24 03:00 11/23/24 07:26 11/23/24 07:26 11/23/24 03:00 11/23/24 07:26
11/22/24 11/23/24 11/24/24
06:59 06:59 06:59
Actual Weight 98.911 kg 95.708 kg
11/22/24 07:58
11/22/24 07:58
11/21/24
14:48
Jic-E-Txowhbwlxcu Pept 193
Physical Exam
Constitutional: No acute distress and Comfortable
EENT: Anicteric
Cardiovascular: Rhythm & rate is regular, Pedal edema is absent, Systolic murmur absent and S1S2 is normal
Respiratory: Respiratory effort normal and Lungs clear to auscul.
GI: Soft
Neuro/Psych: AO x 3
Other: Skin (Warm, dry, intact)
Data Reviewed
-
Date of Service: November 23, 2024
Echo: Report Reviewed by me (EF 57%; no significant valvular disease)
Labs: Labs Reviewed by me
[2024-11-23] MEDS: VIBRAMYCIN 100 MG PO (08:43)
[2024-11-23] MEDS: LASIX 40 MG IV (08:43)
[2024-11-23] MEDS: ASPIR LOW (ENTERIC COATED) 81 MG PO (08:43)
[2024-11-23] MEDS: FARXIGA 10 MG PO (08:49)
[2024-11-23] MEDS: TOPROL XL 25 MG PO (08:49)
--- NOTE | 2024-11-23 09:20 | W.PN.HOSP.TC ---
Today's Communication/Plan
-
Discharge home today
Assessment / Plan
Assessment / Plan
HPI: 89-year-old male past medical history of CAD status post CABG, CHF, left bundle branch block, hypertension, hyperlipidemia, diabetes, chronic macrocytic anemia, obesity, presenting with 1 week of shortness of breath with exertion, nonproductive
cough and wheezing.
#Acute heart failure with preserved ejection fraction
Appreciate cardiology input, Lasix 40 mg IV twice daily changed to Lasix 40 mg p.o. daily
Started on Farxiga 10 mg daily, Toprol XL 25 mg daily
Medically stable for discharge, follow-up with cardiology in the office in 2-3 weeks
BMP prescription provided
#Probable pneumonia
Patient with a mild leukocytosis, and low-grade fever upon admission
Influenza negative, COVID-negative, Legionella/strep antigen negative
Currently on IV Rocephin, doxycycline day 3, added Mucinex 600 mg twice a day
Will discharge on cefdinir and doxycycline to complete a 7-day course
Needs to establish care with PCP, and follow-up
Patient recently moved here from [place], [place]
Seen by PT, patient is independent
#Gastroesophageal reflux disease
Continue PPI twice daily once med rec is confirmed
#Essential hypertension
Monitor blood pressure with starting Toprol-XL and Lasix
#Glucose intolerance
Hemoglobin A1c 6.4
Sliding scale insulin, carb controlled diet
#Obesity due to excess calories
Affects all aspects of care
DVT prophylaxis�subcu Lovenox
Full code
Updated daughter on phone 11/23
Physical Exam
General: Obese, no acute distress
HEENT: Normocephalic, Atraumatic, EOMI, MMM
Respiratory: Clear to auscultation bilaterally
Cardiac: Normal S1/S2, Regular Rate and Rhythm
GI: Soft, Nontender, Nondistended, Normal Bowel Sounds
Extremities: No Clubbing, Cyanosis
Neuro: Nonfocal/Grossly Intact
Psych: Calm, Cooperative
Anticipated Discharge: Today
Subjective/Interval History
-
Date of Service: November 23, 2024
Patient reports cough improved. He does have mild dyspnea with activity, also improved. No shortness of breath at rest. No chest pain. No fever, no vomiting.
Objective Data
-
Vital Signs:
Vital Signs
Temp Pulse Resp BP Pulse Ox
98.3 F 69 18 142/70 97
11/23/24 07:30 11/23/24 08:49 11/23/24 07:30 11/23/24 08:49 11/23/24 07:30
I&O
11/22/24 11/23/24 11/24/24
06:59 06:59 06:59
Intake Total 480 / 480 1440 / 1440
Output Total 850 / 850 1440 / 1440
Balance -370 / -370 0 / 0
[2024-11-23 10:35] LABS: TSH 5.70 uIU/ml (0.47-4.68)
[2024-11-23 11:20] VITALS: BP 108/59
[2024-11-23] MEDS: SENOKOT 17.2 MG PO (11:40)
[2024-11-23] MEDS: COLACE 100 MG PO (11:41)
[2024-11-23] MEDS: PROTONIX 40 MG PO (11:41)
[2024-11-23] MEDS: ROCEPHIN 1000 MG IV (11:41)
[2024-11-23] MEDS: MUCINEX 600 MG PO (11:41)
[2024-11-23] MEDS: STERILE WATER FOR INJECTION 10 ML IV (11:42)
[2024-11-23 11:50] LABS: Glucose - Point of Care 139 mg/dl (70-99)
--- NOTE | 2024-11-23 11:57 | W.DCSUMMARY ---
Discharge Summary
Discharge Data
Date of Admission: 11/21/24
Date of Discharge: 11/23/24
-
Pending Results: No
Hospital Course
Discharge diagnosis:
Acute heart failure with a preserved ejection fraction
Probable pneumonia
Gastroesophageal reflux disease
Essential hypertension
Glucose intolerance/prediabetes
Consults: Cardiology
Echocardiogram:
1. Normal biventricular size and function without regional wall motion abnormalities.
2. LVEF is 57% by Stevens's biplane method.
3. No significant valvular disease.
4. Estimated PASP at 19 mmHg.
5. No prior study available for comparison.
Chest x-ray:
1. Moderate cardiomegaly with evidence for previous CABG surgery.
2. Mild ground-glass opacity in the lower lobes of both lungs. Diagnostic possibilities are (1) mild bilateral lower lobe pneumonia, (2) mild subsegmental atelectasis and scarring, or (3) mild alveolar pulmonary edema.
3. Mildly decreased bilateral lung volumes.
Hospital course:
89-year-old male with a past medical history of gastroesophageal reflux disease, hypertension, and prediabetes who presented with cough, and low-grade fever. Patient was found to have acute heart failure with a preserved ejection fraction as well
as probable pneumonia. He was seen in conjunction with cardiology. He was diuresed with IV Lasix. He was transitioned to Lasix 40 mg p.o. daily. Cardiology also recommends Farxiga 10 mg daily, Toprol XL 25 mg daily, and atorvastatin 40 mg every
afternoon. His hemoglobin A1c was noted to be 6.4.
Patient was treated with IV Rocephin and doxycycline for his probable pneumonia. He did have a mild leukocytosis and low-grade fever upon admission, which resolved. His cough improved. He will be discharged on cefdinir and doxycycline to complete
a 7-day course. He has recently moved here from [place]. He has been instructed to establish care with a PCP. He needs to follow-up with cardiology in the office in 2-3 weeks.
Disposition: Home self-care
Discharge planning: Required 35 minutes
Discharge Plan
-
Patient Disposition: Home (Routine Discharge)
Discharge Diagnosis/Procedures: Congestive heart failure, probable pneumonia, diabetes
Condition: Good
Diet: Low Fat, Low Cholesterol, Low Sodium and Diabetic, Carb Controlled
Activity: As tolerated
Activity Restrictions/Additional Instructions:
Please establish care with a primary care physician, and follow-up.
Also follow-up with cardiology in the office in 2-3 weeks.
Referrals:
Jerzy Arzola MD [Active, Cardiology] - in two to three weeks
UNKNOWN - PT DOES,NOT KNOW [Family Provider]
Prescriptions:
New
furosemide 40 mg Tablet
40 mg PO DAILY 30 Days Qty: 30 0RF
atorvastatin 40 mg Tablet
40 mg PO QPM Qty: 30 0RF
doxycycline hyclate 100 mg Capsule
100 mg PO Q12 4 Days Qty: 8 0RF
metoprolol succinate 25 mg Tablet Extended Release 24 Hr
25 mg PO DAILY Qty: 30 0RF
cefdinir 300 mg Capsule
300 mg PO Q12 4 Days Qty: 8 0RF
dapagliflozin propanediol 10 mg Tablet
10 mg PO DAILY Qty: 30 0RF
guaifenesin [Mucinex] 600 mg tablet extended release 12hr
600 mg PO BID 7 Days Qty: 14 0RF
Continued
omeprazole 20 mg capsule,delayed release(DR/EC)
20 mg PO BID
Linzess 145 mcg capsule
145 mcg PO DAILYPRN PRN (Reason: constipation)
therapeutic multivitamin Tablet
1 tab PO DAILY
aspirin 81 mg Tablet,Delayed Release (Dr/Ec)
81 mg PO DAILY
docusate sodium [Colace] 100 mg Capsule
100 mg PO DAILY
vitamin B complex Tablet
1 tab PO DAILY
Discharge Orders:
Discharge Patient (As Directed); Ordered 11/23/24
Ordered By: Jurgen Martinez
Discharge Date and Time
Discharge Date/Time: 11/23/24 14:42
Print Language: SINHALA
--- NOTE | 2024-11-23 12:23 | CM ---
Addendum entered by Venessa Carter 11/23/24 15:10:
Daughter provided patient's Medicaid ID as patient now has [facility] as of August 2024.
Updated Sade/admissions, confirmed Medicaid plan and will switch as currently patient has Medicaid of [place] listed as secondary
Original Note:
Chart reviewed. Patient has d/c order in
Spoke w/ patient's daughter making her aware of d/c, will be able to transport patient home
Therapy indicated no skilled needs
IMM verbally reviewed, copy on chart
Plan: Home, no needs
[2024-11-23 13:43] LABS: Estimated Creatinine Clearance 55 ml/min
== END 2024-11-23 14:42 | disposition home or self-care (01) | DRG 193 ==
LOC: 4 EAST ACU 19:14
PROVIDERS: Clinical Nurse Specialist Family Health; Internal Medicine; ADMITTING PHYSICIAN Hospitalist; ATTENDING PHYSICIAN Family Medicine; EMERGENCY PHYSICIAN Emergency Medicine; OTHER PHYSICIAN Internal Medicine Cardiovascular Disease
DX: J18.9 Pneumonia, unspecified organism (principal); I50.31 Acute diastolic (congestive) heart failure; I11.0 Hypertensive heart disease with heart failure; K21.9 Gastro-esophageal reflux disease without esophagitis; Z95.1 Presence of aortocoronary bypass graft; D53.9 Nutritional anemia, unspecified; E66.813 Obesity, class 3; E11.9 Type 2 diabetes mellitus without complications; I44.7 Left bundle-branch block, unspecified; Z87.891 Personal history of nicotine dependence; E78.00 Pure hypercholesterolemia, unspecified; F03.90 Unspecified dementia, unspecified severity, without behavioral disturbance, psychotic disturbance, mood disturbance, and anxiety; I25.10 Atherosclerotic heart disease of native coronary artery without angina pectoris; R09.02 Hypoxemia; Z79.899 Other long term (current) drug therapy; Z11.52 Encounter for screening for COVID-19
CPT/HCPCS: 71046; 80053; 82565; 82962; 83036; 83880; 84145; 84443; 85025; 87449; 87502; 87811; 87899; 93005; 93306; 94640; 97162; 99285